=== PATIENT | female | born 1945 | race Caucasian/White ===

== ENCOUNTER 2019-10-12 13:55 | Outpatient (CLI) | payer MEDICARE, SELFPAY ==
[2019-10-12 14:37] LABS: Basophils Absolute Auto 0.1 K/mm3 (0.0-0.1); Basophils Percent Auto 1.2 % (0.2-1.2); Eosinophils Absolute Auto 0.2 K/mm3 (0-0.3); Eosinophils Percent Auto 3.1 % (0-4.4); Hematocrit 38.3 % (37.0-47.0); Hemoglobin 12.2 g/dL (12.0-15.0); Immature Granulocyte Absolute 0.02 K/mm3 (0.00-0.031); Immature Granulocyte Percent A 0.3 % (0-0.5); Immature Reticulocyte Fraction 17.9 % (3.0-15.9); Lymphocytes Absolute Auto 2.14 K/mm3 (0.9-3.2); Lymphocytes Percent Auto 31.6 % (18.3-44.2); Mean Corpuscular HGB Conc 31.9 g/dl (32-36); Mean Platelet Volume 10.9 fl (7.4-10.4); Monocytes Absolute Auto 0.6 K/mm3 (0.1-0.6); Monocytes Percent Auto 9.4 % (2.6-8.5); Neutrophils Absolute Auto 3.7 K/mm3 (1.3-6.7); Neutrophils Percent Auto 54.4 % (45.5-73.1); Platelet Count Result 253 k/mm3 (150-375); Red Blood Count 4.21 M/mm3 (4.2-5.4); Red Cell Distribution Width 16.1 % (11.5-14.5); Reticulocyte Hemoglobin Conten 32.9 pg (28.2-35.7); Reticulocyte Percent 3.87 % (0.7-4.3); Reticulocytes Absolute 0.16 B/L (32.2-175.7); White Blood Count 6.8 K/mm3 (4.5-10.0)
[2019-10-12 15:40] LABS: Iron 59 ug/dL (37-170)
[2019-10-12 15:50] LABS: Percent Iron Saturation 17 % (20-50)
== END 2019-10-12 13:56 | disposition home or self-care (01) ==
PROVIDERS: PCP Internal Medicine
DX: D50.9 Iron deficiency anemia, unspecified (principal)
CPT/HCPCS: 36415; 82728; 83540; 83550; 85025; 85046

== ENCOUNTER → 2019-11-24 15:24 | Outpatient (CLI) | payer MEDICARE, SELFPAY ==
--- NOTE | ~2019-11-24 | US_ITS ---
US renal BI 11/24/2019 15:45 Procedure: Realtime transabdominal ultrasound of the kidneys and bladder. Indication: Chronic kidney disease stage I Comparison: 12/19/2010 Findings: There are multiple small bilateral renal cysts, largest in the right kidney measuring 1.8 c m in largest on the left measuring 1.5 cm. No solid masses, stones or hydronephrosis. The right kidne y measures 12.2 cm and left kidney measures 13.3 cm. Bladder within normal limits. Impression: 1: Bilateral renal cysts. Reviewed, dictated and finalized at location A. Impression: 1: Bilateral renal cysts.
== END ==
PROVIDERS: PCP Internal Medicine
DX: N18.1 Chronic kidney disease, stage 1 (principal); N28.1 Cyst of kidney, acquired
CPT/HCPCS: 76775

== ENCOUNTER 2020-01-28 13:51 | Outpatient (CLI) | payer MEDICARE, SELFPAY ==
[2020-01-28 14:46] LABS: Hematocrit 38.7 % (37.0-47.0); Hemoglobin 12.3 g/dL (12.0-15.0); Mean Corpuscular Volume 91.3 fl (80-100); Red Blood Count 4.24 M/mm3 (4.2-5.4); White Blood Count 6.9 K/mm3 (4.5-10.0)
[2020-01-28 14:47] LABS: Basophils Absolute Auto 0.1 K/mm3 (0.0-0.1); Eosinophils Absolute Auto 0.3 K/mm3 (0-0.3); Eosinophils Percent Auto 3.6 % (0-4.4); Immature Granulocyte Absolute 0.03 K/mm3 (0.00-0.031); Immature Granulocyte Percent A 0.4 % (0-0.5); Immature Reticulocyte Fraction 23.1 % (3.0-15.9); Lymphocytes Absolute Auto 1.94 K/mm3 (0.9-3.2); Lymphocytes Percent Auto 28.1 % (18.3-44.2); Mean Corpuscular HGB Conc 31.8 g/dl (32-36); Mean Platelet Volume 10.2 fl (7.4-10.4); Monocytes Absolute Auto 0.6 K/mm3 (0.1-0.6); Neutrophils Percent Auto 57.9 % (45.5-73.1); Platelet Count Result 318 k/mm3 (150-375); Red Cell Distribution Width 15.8 % (11.5-14.5); Reticulocyte Hemoglobin Conten 31.6 pg (28.2-35.7); Reticulocyte Percent 2.45 % (0.7-4.3)
[2020-01-28 14:54] LABS: Creatinine Urine 25.6 mg/dL; Total Protein Urine Random 95 mg/dL
[2020-01-28 15:25] LABS: Alanine Aminotransferase 21 U/L (4-35); Albumin Level 4.1 g/dL (3.5-5.1); Alkaline Phosphatase 79 U/L (38-126); Anion Gap 7 mmol/L (8-16); Aspartate Amino Transferase 29 U/L (14-36); Bilirubin,Total 0.4 mg/dL (0.2-1.3); Blood Urea Nitrogen 16 mg/dL (7-17); Calcium 9.3 mg/dL (8.4-10.2); Carbon Dioxide 27 mmol/L (22-30); Chloride 105 mmol/L (98-107); Cholesterol 143 mg/dL (0-200); Estimated Glomerular Filt Rate > 60; Glucose 126 mg/dL (65-105); HDL Direct 33 mg/dL; Phosphorus 4.1 mg/dL (2.5-4.5); Potassium 4.3 mmol/L (3.4-5.0); Sodium 139 mmol/L (137-145); Triglycerides 335 mg/dL (<150)
[2020-01-28 15:32] LABS: Hemoglobin A1C 7.7 % (<5.7)
[2020-01-28 15:35] LABS: LDL Cholesterol Direct 59 mg/dL
[2020-01-28 16:07] LABS: Vitamin D 25 Hydroxy 19.7 ng/mL
[2020-01-28 16:17] LABS: Free T4 Free Thyroxine 0.83 ng/mL (0.78-2.19); Iron 47 ug/dL (37-170); Parathyroid Intact 34.2 pg/mL (7.5-53.5); Percent Iron Saturation 11 % (20-50)
[2020-01-28 16:52] LABS: Ferritin 8.57 ng/mL (11.1-264)
[2020-01-28 17:17] LABS: MALB Creatinine Ratio 2223.8 mg/g (0-30); Microalbumin Urine Random 569.3 mg/L (0-16.7)
[2020-01-31 05:47] LABS: Homocysteine 16.9 umol/L (<10.4)
[2020-01-31 21:56] LABS: Intrinsic Factor Blocking Ab Negative (Negative)
[2020-02-01 17:00] LABS: Methylmalonic Acid 110 nmol/L (87-318)
== END 2020-01-28 13:52 | disposition home or self-care (01) ==
PROVIDERS: PCP Internal Medicine
DX: D50.9 Iron deficiency anemia, unspecified (principal); E61.1 Iron deficiency; E53.8 Deficiency of other specified B group vitamins; E78.2 Mixed hyperlipidemia; Z79.4 Long term (current) use of insulin; E11.59 Type 2 diabetes mellitus with other circulatory complications; Z13.6 Encounter for screening for cardiovascular disorders; N18.9 Chronic kidney disease, unspecified
CPT/HCPCS: 36415; 80053; 80061; 82043; 82306; 82570; 82607; 82728; 83036; 83090; 83516; 83540; 83550; 83921; 83970; 84100; 84156; 84439; 84443; 85025; 85046; 86340

== ENCOUNTER 2020-03-07 13:16 | Emergency (ER) | payer MEDICARE, SELFPAY ==
--- NOTE | ~2020-03-07 | XR_ITS ---
XR knee RT 3V DATE: 03/07/2020 14:32 INDICATION: Fall. Right knee injury, pain TECHNIQUE: 3 views COMPARISON: None FINDINGS: There is a large suprapatellar knee joint effusion. Tricompartment osteoarthritis. No fracture, dislocation, periosteal reaction or bone destruction is detected. Femoral, popliteal and trifurcation artery calcifications. IMPRESSION: Large suprapatellar knee joint effusion Tricompartment osteoarthritis Reviewed, dictated and finalized at location A. [employer]URING TECH
[2020-03-07 13:19] VITALS: BP 149/63; PULSE 65; RESP 16; TEMP 35.8; O2SAT 98
[2020-03-07 15:39] VITALS: BP 138/74; PULSE 72; RESP 16; O2SAT 100
--- NOTE | 2020-03-07 16:13 | ED.LOWEXIN ---
HPI - Extremity Injury (Lower) General Chief Complaint: Extremity Injury, Lower Stated Complaint: right knee pain Time Seen by Provider: 03/07/20 13:28 Source: patient Mode of arrival: wheelchair Limitations: no limitations History of Present Illness HPI Narrative: 74-year-old female History of diabetes hypertension She stumbled and fell 2 days ago when she tried to pivot on her right leg Knee collapsed and has been painful ever since and she has had a great deal of difficulty bearing any weight It is mildly swollen There were no other injuries She said she recently had steroid shots in both knees Related Data Home Medications Medication Instructions Recorded Confirmed albuterol sulfate 90 mcg/actuation 2 puff INHALATION Q4-6H PRN gm 03/04/19 02/23/20 aerosol inhaler aspirin 81 mg tablet,delayed 81 mg PO DAILY 03/04/19 02/23/20 release ezetimibe 10 mg tablet 10 mg PO DAILY 03/04/19 02/23/20 fenofibrate nanocrystallized 145 145 mg PO DAILY 03/04/19 02/23/20 mg tablet fluticasone furoate 100 1 inhalation INHALATION DAILY 03/04/19 02/23/20 mcg/actuation blister powder for inhalation insulin glargine 100 unit/mL (3 10 unit SUB-Q DAILY 03/04/19 02/23/20 mL) subcutaneous pen insulin lispro 100 unit/mL 1 unit SUB-Q ONCE 03/04/19 02/23/20 subcutaneous pen lancets #50 each 03/04/19 02/23/20 lisinopril 40 mg tablet 40 mg PO DAILY 03/04/19 02/23/20 mecobalamin (vitamin B12) 1,000 1,000 mcg SUBLINGUAL DAILY 03/04/19 02/23/20 mcg disintegrating tablet,sublingual metformin 1,000 mg tablet 1,000 mg PO BID 03/04/19 02/23/20 rosuvastatin 40 mg tablet 40 mg PO DAILY 03/04/19 02/23/20 tramadol 50 mg tablet 50 mg PO BID PRN tablet 03/04/19 02/23/20 furosemide 20 mg tablet 20 mg PO QAM 03/08/19 02/23/20 gabapentin 300 mg capsule 300 mg PO DAILY 03/08/19 02/23/20 tiotropium 2.5 mcg-olodaterol 2.5 2 puff INHALATION DAILY 06/11/19 02/23/20 mcg/actuation mist for inhalation empagliflozin 10 mg tablet 10 mg PO DAILY 02/02/20 02/23/20 metoprolol succinate 25 mg 25 mg PO DAILY 02/02/20 02/23/20 tablet,extended release 24 hr nitroglycerin 0.4 mg sublingual 0.4 mg SUBLINGUAL Q5M PRN 02/02/20 02/23/20 tablet cholecalciferol (vitamin D3) 100 2,000 unit PO DAILY cap 02/23/20 02/23/20 mcg (4,000 unit) capsule dulaglutide 1.5 mg/0.5 mL 3 mg SUB-Q WEEKLY ml 02/23/20 02/23/20 subcutaneous pen injector ergocalciferol (vitamin D2) 1,250 1,250 mcg PO WEEKLY 02/23/20 02/23/20 mcg (50,000 unit) capsule icosapent ethyl 1 gram capsule 2 g PO BID 02/23/20 02/23/20 pregabalin 25 mg capsule 50 mg PO DIRECTED cap 02/23/20 02/23/20 Allergies Allergy/AdvReac Type Severity Reaction Status Date / Time Sulfa (Sulfonamide Allergy Severe Swelling Verified 02/23/20 14:05 Antibiotics) of Lip/Tongue/Throat Penicillins Allergy Unknown Swelling Verified 02/23/20 14:05 of Lip/Tongue/Throat Review of Systems Review of Systems: All systems reviewed & are unremarkable except as noted in HPI and below Constitutional: Constitutional: Denies headache(s) and Denies weakness Eyes: Eyes: Reports no additional eye complaints ENT: Denies headache(s) and Denies nasal congestion Cardiovascular: Cardiovascular: Denies chest pain, Denies leg edema, Denies palpitations and Denies dyspnea Respiratory: Respiratory: Denies cough, Denies dyspnea and Denies wheezing Genitourinary: Genitourinary: Denies urinary frequency Musculoskeletal: Musculoskeletal: Denies back pain, Denies deformity, Reports arthralgias, Reports joint swelling, Denies muscle weakness and Denies numbness Integumentary/Breasts: Skin/Breast: Denies rash and Denies wounds Neurologic: Denies focal weakness and Denies numbness Psychiatric: Psychiatric: Reports no additional psychiatric complaints Endocrine: Endocrine: Denies palpitations PMFSH Past Medical History Medical History (Reviewed 02/23/20 @ 14:07 by Jessica Fletcher, [facility]
== END 2020-03-07 17:18 | disposition home or self-care (01) ==
PROVIDERS: Emergency Provider Emergency Medicine; PCP Internal Medicine
DX: S89.91XA Unspecified injury of right lower leg, initial encounter (principal); I10 Essential (primary) hypertension; Z79.82 Long term (current) use of aspirin; Z79.4 Long term (current) use of insulin; J45.909 Unspecified asthma, uncomplicated; N28.9 Disorder of kidney and ureter, unspecified; I51.9 Heart disease, unspecified; M17.0 Bilateral primary osteoarthritis of knee; Z87.891 Personal history of nicotine dependence; E11.9 Type 2 diabetes mellitus without complications; W01.0XXA Fall on same level from slipping, tripping and stumbling without subsequent striking against object, initial encounter
CPT/HCPCS: 73562; 99283

== ENCOUNTER 2020-03-14 11:24 | Outpatient (CLI) | payer MEDICARE, SELFPAY ==
[2020-03-14 11:54] LABS: Basophils Absolute Auto 0.1 K/mm3 (0.0-0.1); Basophils Percent Auto 0.9 % (0.2-1.2); Eosinophils Absolute Auto 0.2 K/mm3 (0-0.3); Eosinophils Percent Auto 2.4 % (0-4.4); Hematocrit 38.3 % (37.0-47.0); Hemoglobin 12.3 g/dL (12.0-15.0); Immature Granulocyte Absolute 0.05 K/mm3 (0.00-0.031); Immature Granulocyte Percent A 0.6 % (0-0.5); Lymphocytes Absolute Auto 1.67 K/mm3 (0.9-3.2); Lymphocytes Percent Auto 21.3 % (18.3-44.2); Mean Corpuscular HGB Conc 32.1 g/dl (32-36); Mean Corpuscular Hemoglobin 30.1 pg (26-34); Mean Corpuscular Volume 93.9 fl (80-100); Mean Platelet Volume 9.5 fl (7.4-10.4); Monocytes Absolute Auto 0.6 K/mm3 (0.1-0.6); Monocytes Percent Auto 7.9 % (2.6-8.5); Neutrophils Absolute Auto 5.2 K/mm3 (1.3-6.7); Neutrophils Percent Auto 66.9 % (45.5-73.1); Platelet Count Result 361 k/mm3 (150-375); Red Blood Count 4.08 M/mm3 (4.2-5.4); Red Cell Distribution Width 19.1 % (11.5-14.5); White Blood Count 7.8 K/mm3 (4.5-10.0)
[2020-03-14 12:21] LABS: Erythrocyte Sedimentation Rate 33 mm/hr (0-20)
[2020-03-14 12:45] LABS: CRP < 0.5 mg/dL (<1.0); Uric Acid 4.8 mg/dL (2.5-7.5)
[2020-03-14 16:00] LABS: Rheumatoid Factor < 8.6 IU/ML (<12)
== END 2020-03-14 11:25 | disposition home or self-care (01) ==
PROVIDERS: PCP Internal Medicine; Visit Provider Orthopaedic Surgery
DX: M17.0 Bilateral primary osteoarthritis of knee (principal); M06.9 Rheumatoid arthritis, unspecified; J45.909 Unspecified asthma, uncomplicated
CPT/HCPCS: 36415; 84550; 85025; 85652; 86038; 86140; 86430

== ENCOUNTER 2020-04-17 11:16 | Outpatient (CLI) | payer MEDICARE, SELFPAY ==
--- NOTE | ~2020-04-17 | MR_ITS ---
EXAMINATION: MR knee RT wo con DATE: 04/17/2020 12:18 INDICATION: One month of right knee pain, weakness and swelling TECHNIQUE: Magnetic resonance imaging (MRI) of the right knee was performed without intravenous contr ast. Sequences included coronal PD-weighted FSE, coronal PD-weighted FS FSE, sagittal T2-weighted FS E, sagittal PD-weighted FS FSE and axial PD weighted fat saturated FSE. COMPARISON: None. FINDINGS: Evaluation mildly limited by some motion artifact on the sagittal sequences more prominent on the fat -saturated sequence. Medial compartment: Full or near full-thickness radial tear at the posterior root of the medial meniscus. There is increa sed intrasubstance signal in the posterior horn and posterior body which does not unambiguously conta ct the articular surface to suggest additional tear in this be consistent with mucoid degeneration. S mall region of partial-thickness chondral ulceration involving less than 50% the cartilage thickness and without degenerative subchondral changes at the anterolateral most weightbearing medial femoral c ondyle. Deep chondral ulceration which appears to approach full-thickness at the posterior weightbear ing medial femoral condyle which measures 1.3 cm AP and 9 mm medial collateral with negligible underl josseline subarticular edema. Lateral compartment: Additional increased intrasubstance signal in the body of the lateral meniscus which does not and bas e of contact the articular surface to suggest tear consistent with additional mucoid degeneration. Pa rtial-thickness chondral fissuring at the posterior aspect of the lateral tibial plateau without dege nerative subchondral changes. Small flat subchondral osteophytes underlying the anteromedial aspect o f the lateral tibial plateau. Patellofemoral compartment: Extensive full and near full-thickness chondral ulceration involving the majority of the lateral almanza llar facet and apical ridge as well as a significant portion of the juxtaposed lateral trochlea with suggestion of early remodeling of the articular cortices and mild scattered subarticular edema. Addit ional less severe partial thickness chondral ulceration and fissuring at the medial facet, medial tro chlea and trochlear groove. Ligaments and tendons: Anterior cruciate ligament is normal. The posterior cruciate ligament appears mildly thickened with i ncreased intrasubstance signal consistent with at least partial tear although no discontinuity is marivel reciated. The medial collateral ligament and fibular collateral ligament complex are normal. The exte nsor mechanism is normal with bands of magic angle artifact along the patellar tendon. The visualized medial and lateral hamstring tendons as well as the iliotibial band are normal. Fluid: Large right knee joint effusion. There are several loose osteochondral bodies in the popliteal recess . There is a suprapatellar plical band as well as a medial plical band bladder which crosses beyond t he medial rim of the medial trochlea. There is prepatellar edema without a discrete bursal fluid melody ection. Osseous/other: No fracture or pathologic marrow replacing process. IMPRESSION: 1. Both medial and lateral meniscal mucoid degeneration with radial tear at the posterior root of the medial meniscus. 2. At least partial tear of the posterior cruciate ligament. 3. Moderate to severe patellofemoral and mild medial and lateral compartment osteoarthritis with allison ons of high-grade chondral malacia in all 3 compartments, greatest in the patellofemoral. 4. Large likely reactive right knee joint effusion. Reviewed, dictated and finalized at location A. 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
== END 2020-04-17 11:17 | disposition home or self-care (01) ==
PROVIDERS: PCP Internal Medicine; Visit Provider Orthopaedic Surgery
DX: S83.241A Other tear of medial meniscus, current injury, right knee, initial encounter (principal); X58.XXXA Exposure to other specified factors, initial encounter; M17.11 Unilateral primary osteoarthritis, right knee; M25.461 Effusion, right knee
CPT/HCPCS: 73721

== ENCOUNTER 2020-05-26 13:51 | Outpatient (CLI) | payer MEDICARE, SELFPAY ==
[2020-05-26 14:36] LABS: Basophils Absolute Auto 0.1 K/mm3 (0.0-0.1); Basophils Percent Auto 0.7 % (0.2-1.2); Eosinophils Absolute Auto 0.2 K/mm3 (0-0.3); Eosinophils Percent Auto 3.2 % (0-4.4); Hematocrit 32.9 % (37.0-47.0); Immature Granulocyte Absolute 0.03 K/mm3 (0.00-0.031); Immature Granulocyte Percent A 0.4 % (0-0.5); Immature Platelet Fraction Pct 2.8 % (0.9-11.2); Immature Reticulocyte Fraction 30.5 % (3.0-15.9); Lymphocytes Absolute Auto 2.02 K/mm3 (0.9-3.2); Lymphocytes Percent Auto 28.3 % (18.3-44.2); Mean Corpuscular HGB Conc 30.4 g/dl (32-36); Mean Corpuscular Hemoglobin 25.5 pg (26-34); Mean Corpuscular Volume 83.9 fl (80-100); Mean Platelet Volume 9.8 fl (7.4-10.4); Monocytes Absolute Auto 0.7 K/mm3 (0.1-0.6); Monocytes Percent Auto 9.9 % (2.6-8.5); Neutrophils Absolute Auto 4.1 K/mm3 (1.3-6.7); Neutrophils Percent Auto 57.5 % (45.5-73.1); Platelet Count Result 312 k/mm3 (150-375); Red Blood Count 3.92 M/mm3 (4.2-5.4); Red Cell Distribution Width 16.5 % (11.5-14.5); Reticulocyte Hemoglobin Conten 24.1 pg (28.2-35.7); Reticulocyte Percent 2.25 % (0.7-4.3); Reticulocytes Absolute 0.09 B/L (32.2-175.7); White Blood Count 7.2 K/mm3 (4.5-10.0)
[2020-05-26 15:09] LABS: Hypochromasia 1+ (NORMAL); Platelet Estimate Adequate (Adequate)
[2020-05-26 15:21] LABS: Iron 24 ug/dL (37-170)
[2020-05-26 15:30] LABS: Percent Iron Saturation 5 % (20-50)
[2020-05-26 15:57] LABS: Ferritin 5.97 ng/mL (11.1-264)
== END 2020-05-26 13:52 | disposition home or self-care (01) ==
PROVIDERS: PCP Internal Medicine
DX: D50.0 Iron deficiency anemia secondary to blood loss (chronic) (principal)
CPT/HCPCS: 36415; 82728; 83540; 83550; 85025; 85046; 85055

== ENCOUNTER 2020-10-27 13:22 | Outpatient (CLI) | payer MEDICARE, SELFPAY ==
--- NOTE | ~2020-10-27 | CT_ITS ---
EXAMINATION: CT lung screening DATE: 10/27/2020 14:12 INDICATION: Personal history of nicotine dependence, current smoker with 50 pack year history TECHNIQUE: Computed tomography (CT) of the chest was performed without intravenous contrast. The dose -length product (DLP) was 201.86 mGy-cm. Automated exposure control and iterative reconstruction tech [employer] were employed. COMPARISON: 12/19/2016 FINDINGS: There are multiple nodules throughout all lung zones. The largest is a 4 mm nodule of the l eft upper lobe. There is mild emphysema. There is mild atelectasis of the lung bases. There is no ple ural effusion or pneumothorax. No pathologically enlarged thoracic lymph nodes are identified. The he art size is normal. Calcified coronary artery atherosclerosis is noted. There is severe spondylosis o f the lower cervical spine and moderate thoracic spondylosis. IMPRESSION: 1. Lung-RADS category 2: Benign appearance or behavior. Continue annual screening with noncontrast lo w-dose chest CT in 12 months. Reviewed, dictated and finalized at location A. IMPRESSION: 1. Lung-RADS category 2: Benign appearance or behavior. Continue annual screeni ng with noncontrast low-dose chest CT in 12 months.
--- NOTE | ~2020-10-27 | MR_ITS ---
EXAMINATION: MR lumbar spine wo [facility] EXAM DATE: 10/27/2020 14:38 INDICATION: Spinal stenosis lumbar region. TECHNIQUE: Multi-sequential, multiplanar MR images of the lumbar spine were obtained without contrast . Sagittal T1, T2, T2 fat saturation images. Axial T2 weighted images. Comparison is made to prior examination from 10/20/15. FINDINGS: There is 2 mm retrolisthesis L1 on L2, 3 mm retrolisthesis L2 on L3 and L3 on L4. Moderate to severe disc disease L2-S1. The conus medullaris terminates at the L1/2 level and has normal signal intensity and morphology. Endplate degenerative signal change L2-3 and L3-4. Paraspinal soft tissue is unremarkable. Mild thoracolumbar scoliosis. Level by level evaluation: T12-L1: There is a mild diffuse disc bulge. Facet arthropathy: Mild. Neural foraminal stenosis: No stenosis. Central canal stenosis: No stenosis. L1-L2: There is a mild to moderate diffuse disc bulge. Facet arthropathy: Mild to moderate. Neural foraminal stenosis: Mild to moderate right, no left. Central canal stenosis: Mild. L2-L3: There is a moderate diffuse disc bulge. Facet arthropathy: Moderate. Neural foraminal stenosis: Moderate left, mild to moderate right. Central canal stenosis: Moderate, nerve root crowding. L3-L4: There is a moderate diffuse disc bulge, small left central extrusion with inferior migration. Facet arthropathy: Moderate. Neural foraminal stenosis: Moderate to severe left, mild to moderate right. Central canal stenosis: Moderate. L4-L5: There is a mild to moderate diffuse disc bulge. Facet arthropathy: Mild to moderate. Neural foraminal stenosis: Moderate left, mild to moderate right. Central canal stenosis: Mild to moderate. L5-S1: There is a moderate to large diffuse disc bulge. Facet arthropathy: Moderate to severe right, moderate left. Neural foraminal stenosis: Moderate to severe right, moderate left. Central canal stenosis: Mild to moderate. There is been noticeable interval progression in spondylosis compared to 2016, including the central canal stenosis at L2-3 and L3-4. IMPRESSION: Moderate to severe lumbar spondylosis with progression compared to 2016. Reviewed, dictated and finalized at location B.
== END 2020-10-27 13:23 | disposition home or self-care (01) ==
PROVIDERS: PCP Internal Medicine
DX: M48.062 Spinal stenosis, lumbar region with neurogenic claudication (principal); M47.817 Spondylosis without myelopathy or radiculopathy, lumbosacral region; Z87.891 Personal history of nicotine dependence; M47.896 Other spondylosis, lumbar region
CPT/HCPCS: 71271; 72148

== ENCOUNTER 2020-11-23 11:25 | Outpatient (CLI) | payer MEDICARE, SELFPAY ==
--- NOTE | 2020-11-23 | ECG_ITS ---
Measurements Intervals [place] Rate: 64 P: 51 NE: 198 QRS: 10 QRSD: 93 T: 54 QT: 408 QTc: 421 Interpretive Statements SINUS RHYTHM NONSPECIFIC T-WAVE ABNORMALITY BORDERLINE R WAVE PROGRESSION, ANTERIOR LEADS CONSIDER INFERIOR INFARCT, AGE INDETERMINATE ABNORMAL ECG Electronically Signed On 11-23-2020 12:46:29 CDT by Isaiah Patel D.O.
--- NOTE | ~2020-11-23 | XR_ITS ---
XR skull min 4V DATE: 11/23/2020 12:02 INDICATION: Head injury TECHNIQUE: Ian Escobedo and left and right lateral views COMPARISON: None FINDINGS: There is severe degenerative disc disease at C5-6 and C6-7. Normal sella turcica. No skull fracture or bone destruction. No abnormal intracranial calcification i s detected. There is normal aeration of the paranasal sinuses and mastoid air cells. IMPRESSION: Reviewed, dictated and finalized at location A. IMPRESSION:
[2020-11-23 14:50] LABS: Basophils Absolute Auto 0.1 K/mm3 (0.0-0.1); Basophils Percent Auto 1.1 % (0.2-1.2); Eosinophils Absolute Auto 0.2 K/mm3 (0-0.3); Eosinophils Percent Auto 2.6 % (0-4.4); Hematocrit 36.4 % (37.0-47.0); Hemoglobin 11.1 g/dL (12.0-15.0); Immature Granulocyte Absolute 0.02 K/mm3 (0.00-0.031); Immature Granulocyte Percent A 0.3 % (0-0.5); Lymphocytes Absolute Auto 1.75 K/mm3 (0.9-3.2); Mean Corpuscular HGB Conc 30.5 g/dl (32-36); Monocytes Absolute Auto 0.7 K/mm3 (0.1-0.6); Monocytes Percent Auto 8.6 % (2.6-8.5); Neutrophils Absolute Auto 4.9 K/mm3 (1.3-6.7); Neutrophils Percent Auto 64.4 % (45.5-73.1); Platelet Count Result 300 k/mm3 (150-375); Red Blood Count 3.83 M/mm3 (4.2-5.4); Red Cell Distribution Width 16.4 % (11.5-14.5); White Blood Count 7.6 K/mm3 (4.5-10.0)
[2020-11-23 14:56] LABS: Alanine Aminotransferase 24 U/L (4-35); Alkaline Phosphatase 70 U/L (38-126); Anion Gap 6 mmol/L (8-16); Aspartate Amino Transferase 30 U/L (14-36); Bilirubin,Total 0.4 mg/dL (0.2-1.3); Blood Urea Nitrogen 13 mg/dL (7-17); Calcium 9.2 mg/dL (8.4-10.2); Carbon Dioxide 24 mmol/L (22-30); Chloride 110 mmol/L (98-107); Cholesterol 132 mg/dL (0-200); Estimated Glomerular Filt Rate > 60; Glucose 136 mg/dL (65-110); HDL Direct 44 mg/dL; Phosphorus 4.2 mg/dL (2.5-4.5); Potassium 4.2 mmol/L (3.4-5.0); Sodium 140 mmol/L (137-145); Triglycerides 206 mg/dL (<150)
[2020-11-23 14:57] LABS: Add Urine Microscopic? YES; Appearance Urine Clear (Clear); Bilirubin Urine Negative (Negative); Blood Urine Negative (Negative); Color Urine Yellow (Yellow); Glucose Urine UA Negative (Negative); Ketones Urine Negative (Negative); Leukocyte Esterase Ur Negative LEU/UL (Negative); Mucus Urine Rare /lpf; Nitrate Urine Negative (Negative); Protein Urine 3+ mg/dL (Negative); Specific Grav Ur 1.019 (1.001-1.035); Squamous Epithelial Cell Urine Rare /hpf (Few); Urobilinogen Urine Negative mg/dL (<2.0); WBC Urine 0-3 /hpf
[2020-11-23 14:59] LABS: Rheumatoid Factor < 8.6 IU/ML (<12)
[2020-11-23 15:07] LABS: LDL Cholesterol Direct 56 mg/dL
[2020-11-23 15:51] LABS: Creatinine Urine 93.9 mg/dL
[2020-11-23 15:52] LABS: Parathyroid Intact 24.7 pg/mL (7.5-53.5)
[2020-11-23 16:00] LABS: Vitamin D 25 Hydroxy 31.5 ng/mL
[2020-11-23 16:15] LABS: Hepatitis B Surface Antigen Negative (Negative)
[2020-11-23 16:33] LABS: Hepatitis C Virus Antibody Negative (Negative)
[2020-11-23 16:56] LABS: Total Protein Urine Random 351 mg/dL; Ur Ttl Prot Creatinine Ratio 3.74 mg/mg (0-0.20)
[2020-11-23 17:02] LABS: MALB Creatinine Ratio 1214.1 mg/g (0-30); Microalbumin Urine Random > 1140.0 mg/L (0-16.7)
[2020-11-23 20:58] LABS: Hemoglobin A1C 7.1 % (<5.7)
[2020-11-26 04:38] LABS: Albumin 3.6 g/dL (3.8-4.8); Alpha 1 Globulin 0.3 g/dL (0.2-0.3); Alpha 2 Globulin 0.9 g/dL (0.5-0.9); Beta 1 Globulin 0.5 g/dL (0.4-0.6); Gamma Globulin 0.8 g/dL (0.8-1.7); Protein, Total 6.4 g/dL (6.1-8.1)
[2020-11-26 22:52] LABS: Anti Nuclear Antibody Titer 1:40 (Negative)
[2020-11-28 05:48] LABS: Creatinine, Random Urine 93 mg/dL (20-275); Total Protein/Creatinine Ratio 3204 mg/g creat (21-161)
== END 2020-11-23 11:26 | disposition home or self-care (01) ==
PROVIDERS: PCP Internal Medicine; Visit Provider Internal Medicine
DX: M48.062 Spinal stenosis, lumbar region with neurogenic claudication (principal); E55.9 Vitamin D deficiency, unspecified; E11.69 Type 2 diabetes mellitus with other specified complication; E78.2 Mixed hyperlipidemia; R80.9 Proteinuria, unspecified; Z11.59 Encounter for screening for other viral diseases; N18.31 Chronic kidney disease, stage 3a
CPT/HCPCS: 36415; 70260; 80053; 80061; 80069; 81001; 82043; 82306; 82570; 82607; 83036; 83970; 84155; 84156; 84165; 84166; 84443; 85025; 86038; 86039; 86225; 86335; 86430; 86803; 87340; 93005

== ENCOUNTER 2021-06-22 07:53 | Outpatient (CLI) | payer MEDICARE, SELFPAY ==
--- NOTE | ~2021-06-22 | MR_ITS ---
EXAMINATION: MR knee LT wo con DATE: 06/22/2021 09:14 INDICATION: Osteoarthritis at the left knee with one month of medial left knee pain and swelling TECHNIQUE: Magnetic resonance imaging (MRI) of the left knee was performed without intravenous contra st. Sequences included coronal PD-weighted FSE, coronal PD-weighted FS FSE, sagittal T2-weighted FSE , sagittal PD-weighted FS FSE and axial PD weighted fat saturated FSE. COMPARISON: None. FINDINGS: Medial compartment: Complex tear at the posterior horn of the medial meniscus. There is medial extrusion of the meniscal body. Partial-thickness cartilage loss with chondral surface irregularity along the medial tibial antoinette teau. Additional partial thickness cartilage loss also with cortical irregularity along the anterior to posterior weightbearing medial femoral condyle. This raises full/near full-thickness with mild cor tical irregularity at the central weightbearing medial femoral condyle. Cartilage thickness at the po sterior most weightbearing lateral femoral condyle appears relatively preserved however there is no u nderlying a delaminating chondral tear near the bone chondral interface which extends 8 mm posteriorl y from the more anterior deeper ulceration margin. Lateral compartment: Lateral meniscus is normal. Small region of shallow chondral ulcerations at the posterior weightbeari ng lateral femoral condyle. Patellofemoral compartment: Extensive full/near full-thickness cartilage loss involving the medial patellar facet, the apical rid ge and medial side of the lateral facet with underlying cortical irregularity. There are also small f oci of edema-like marrow signal change along the superomedial aspect of the lateral patellar facet. A dditional deep chondral ulceration with some remodeling of the articular cortex along the medial troc hlea and trochlear groove. Small amount of shallow chondral ulceration along the cephalad aspect of t he lateral trochlea. Ligaments and tendons: Anterior and posterior cruciate ligaments are normal. The medial collateral ligament and fibular melody ateral ligament complex are normal. Patellar tendon is normal. Mild distal quadriceps tendinopathy. T he visualized medial and lateral hamstring tendons as well as the iliotibial band are normal. Fluid: Moderate sized knee joint effusion with moderate scattered synovitis and prominent at the suprapatell ar pouch and along the posterior margin of Hoffa's fat pad. Multiple multiloculated ganglion cysts ar ising from the posterior recess of the knee. No loose osteochondral bodies identified. There is subcu taneous edema about the knee. Osseous/other: There is prominent marrow edema along the medial femoral condyle surrounding a small region of shallo w concavity to the articular cortex along the medial rim of the anterior weightbearing medial femoral condyle which could represent either an impaction fracture or stress/insufficiency fracture related to altered stress distribution resulting from the meniscal tear. Multiloculated intraosseous ganglion cyst underlying the intercondylar eminence which appears to arise from a tiny neck at the root of th e posterior horn of the medial meniscus. There is fatty atrophy of indeterminate etiology of the visu alized portion of the semimembranosus muscle belly. Nonspecific mild feathery edema in the visualized vastus medialis and lateralis which could be related to muscle strain. Partially visualized intramus cular lipoma within the proximal medial head of the gastrocnemius IMPRESSION: 1. Complex medial meniscal tear. 2. Subarticular fracture along the medial rim of the anterior weightbearing medial femoral condyle wi th shallow concavity of the articular cortex which could be due to either discrete impaction fracture or more likely a stress/insufficiency fracture related to altered stresses patient resulting from th e m
== END 2021-06-22 07:54 | disposition home or self-care (01) ==
PROVIDERS: PCP Internal Medicine
DX: M17.0 Bilateral primary osteoarthritis of knee (principal); S83.232A Complex tear of medial meniscus, current injury, left knee, initial encounter; X58.XXXA Exposure to other specified factors, initial encounter
CPT/HCPCS: 73721

== ENCOUNTER 2021-07-09 14:46 | Outpatient (CLI) | payer MEDICARE, SELFPAY ==
[2021-07-09 15:29] LABS: Basophils Absolute Auto 0.1 K/mm3 (0.0-0.1); Basophils Percent Auto 1.2 % (0.2-1.2); Eosinophils Absolute Auto 0.2 K/mm3 (0-0.3); Eosinophils Percent Auto 3.3 % (0-4.4); Hemoglobin 11.7 g/dL (12.0-15.0); Immature Granulocyte Absolute 0.02 K/mm3 (0.00-0.031); Immature Granulocyte Percent A 0.3 % (0-0.5); Lymphocytes Absolute Auto 2.05 K/mm3 (0.9-3.2); Lymphocytes Percent Auto 30.8 % (18.3-44.2); Mean Corpuscular HGB Conc 32.5 g/dl (32-36); Mean Corpuscular Hemoglobin 30.6 pg (26-34); Mean Corpuscular Volume 94.2 fl (80-100); Mean Platelet Volume 11.4 fl (7.4-10.4); Monocytes Absolute Auto 0.6 K/mm3 (0.1-0.6); Monocytes Percent Auto 9.2 % (2.6-8.5); Neutrophils Absolute Auto 3.7 K/mm3 (1.3-6.7); Neutrophils Percent Auto 55.2 % (45.5-73.1); Platelet Count Result 245 k/mm3 (150-375); Red Blood Count 3.82 M/mm3 (4.2-5.4); Red Cell Distribution Width 19.1 % (11.5-14.5); White Blood Count 6.7 K/mm3 (4.5-10.0)
[2021-07-09 16:48] LABS: Iron 52 ug/dL (37-170)
[2021-07-09 17:03] LABS: Percent Iron Saturation 13 % (20-50)
== END 2021-07-09 14:47 | disposition home or self-care (01) ==
PROVIDERS: PCP Internal Medicine
DX: D50.0 Iron deficiency anemia secondary to blood loss (chronic) (principal)
CPT/HCPCS: 36415; 82728; 83540; 83550; 85025

== ENCOUNTER 2021-09-26 11:35 | Day surgery (SDC) | payer MEDICARE, SELFPAY ==
[2021-09-19 13:18] VITALS: BMI 36.7
--- NOTE | 2021-09-26 09:01 | WPDHPUPDATE1 ---
History and Physical Update Update Date/Time: 09/26/21 09:01 History and Physical has been reviewed, including an updated exam of the patient. There are NO changes in the patient's condition. Risks, benefits, and alternatives have been discussed and questions answered. Patient agrees to proceed with procedure.
[2021-09-26 11:52] VITALS: BMI 37.8
[2021-09-26 11:53] VITALS: BP 154/70; PULSE 65; RESP 14; TEMP 36.6; O2SAT 98
[2021-09-26] MEDS: TETRACAINE HCL 0.5% OPHTH SOLN 4 ML BTL 1 DROP AFFCTD EYE ×3 (11:58→12:08)
--- NOTE | 2021-09-26 12:22 | W.PM.PROC2 ---
Procedure Note - Detailed Date of Procedure 09/26/21 Pre-op Diagnosis Posterior Capsule Opacification Post-op Diagnosis Same Procedure Performed YAG Laser Capsulotomy LEFT eye Surgeon Alen Dale MD Anesthesia Other (Topical) Description of Procedure After appropriate discussion, consent and topical anesthesia, the patient was placed in front of the laser. All settings were checked. The laser procedure was then performed. The patient tolerated the procedure well. Power Level: [3.0 mJ] Number of Pulses: [30] Complications None Condition Stable Disposition Same day
== END 2021-09-26 12:15 | disposition home or self-care (01) ==
PROVIDERS: PCP Internal Medicine
PROC: (CPT 66821; principal; 2021-09-26 12:30)
DX: H26.492 Other secondary cataract, left eye (principal)
CPT/HCPCS: 66821

== ENCOUNTER 2021-11-10 12:55 | Outpatient (CLI) | payer MEDICARE, SELFPAY ==
--- NOTE | ~2021-11-10 | CT_ITS ---
EXAMINATION: CT lung screening DATE: 11/10/2021 13:20 INDICATION: Lung cancer screening TECHNIQUE: Computed tomography (CT) of the chest was performed without intravenous contrast. The dose -length product was 319.85 mGy-cm. Automated exposure control and iterative reconstruction technique were employed. COMPARISON: CT dated 10/27/2020 FINDINGS: Heart size normal. No significant pleural or pericardial effusion. There is atherosclerosis of the aorta and coronary arteries. No thoracic lymphadenopathy. Mild emphysema. There are multiple bilateral pulmonary nodules all measuring 4 mm or less. No endobronchial lesions. There is mild-moder ate thoracic spondylosis. IMPRESSION: 1. Lung-RADS category 2: Benign appearance or behavior. Continue annual screening with noncontrast lo w-dose chest CT in 12 months. Reviewed, dictated and finalized at location A. IMPRESSION: 1. Lung-RADS category 2: Benign appearance or behavior. Continue annual screeni ng with noncontrast low-dose chest CT in 12 months.
== END 2021-11-10 12:56 | disposition home or self-care (01) ==
PROVIDERS: PCP Internal Medicine; Visit Provider Physician Assistant
DX: Z12.2 Encounter for screening for malignant neoplasm of respiratory organs (principal); Z87.891 Personal history of nicotine dependence
CPT/HCPCS: 71271

== ENCOUNTER 2022-02-25 11:18 | Outpatient (CLI) | payer MEDICARE, SELFPAY ==
[2022-02-25 11:57] LABS: Basophils Absolute Auto 0.1 K/mm3 (0.0-0.1); Basophils Percent Auto 1.1 % (0.2-1.2); Eosinophils Absolute Auto 0.5 K/mm3 (0-0.3); Eosinophils Percent Auto 6.8 % (0-4.4); Hematocrit 30.8 % (37.0-47.0); Hemoglobin 9.4 g/dL (12.0-15.0); Immature Granulocyte Absolute 0.02 K/mm3 (0.00-0.031); Immature Granulocyte Percent A 0.3 % (0-0.5); Lymphocytes Absolute Auto 1.55 K/mm3 (0.9-3.2); Lymphocytes Percent Auto 19.6 % (18.3-44.2); Mean Corpuscular HGB Conc 30.5 g/dl (32-36); Mean Corpuscular Hemoglobin 25.1 pg (26-34); Mean Corpuscular Volume 82.4 fl (80-100); Mean Platelet Volume 9.8 fl (7.4-10.4); Monocytes Percent Auto 12.5 % (2.6-8.5); Neutrophils Absolute Auto 4.7 K/mm3 (1.3-6.7); Neutrophils Percent Auto 59.7 % (45.5-73.1); Platelet Count Result 306 k/mm3 (150-375); Red Blood Count 3.74 M/mm3 (4.2-5.4); Red Cell Distribution Width 18.5 % (11.5-14.5); White Blood Count 7.9 K/mm3 (4.5-10.0)
[2022-02-25 12:04] LABS: Creatinine Urine 67.1 mg/dL
[2022-02-25 12:17] LABS: Total Protein Urine Random 401 mg/dL; Ur Ttl Prot Creatinine Ratio 5.98 mg/mg (0-0.20)
[2022-02-25 12:17] LABS: Albumin Level 3.6 g/dL (3.5-5.1); Anion Gap 9 mmol/L (8-16); Blood Urea Nitrogen 13 mg/dL (7-17); Calcium 8.5 mg/dL (8.4-10.2); Carbon Dioxide 26 mmol/L (22-30); Chloride 105 mmol/L (98-107); Estimated Glomerular Filt Rate > 60; Glucose 236 mg/dL (65-110); Phosphorus 3.7 mg/dL (2.5-4.5); Sodium 140 mmol/L (137-145)
[2022-02-25 12:18] LABS: Iron 13 ug/dL (37-170)
[2022-02-25 12:27] LABS: Percent Iron Saturation 3 % (20-50)
[2022-02-25 12:28] LABS: Parathyroid Intact 38.2 pg/mL (7.5-53.5)
[2022-02-25 19:38] LABS: Ferritin 6.77 ng/mL (11.1-264)
== END 2022-02-25 11:19 | disposition home or self-care (01) ==
LOC: ANHLAB 11:19
PROVIDERS: PCP Internal Medicine
DX: D50.0 Iron deficiency anemia secondary to blood loss (chronic) (principal); N18.9 Chronic kidney disease, unspecified
CPT/HCPCS: 36415; 80069; 82570; 82728; 83540; 83550; 83970; 84156; 85025

== ENCOUNTER 2022-04-05 14:44 | Outpatient (CLI) | payer MEDICARE, SELFPAY ==
--- NOTE | ~2022-04-05 | MR_ITS ---
EXAMINATION: MR lumbar spine wo con DATE: 04/05/2022 15:24 INDICATION: Spinal stenosis. TECHNIQUE: Magnetic resonance imaging (MRI) of the lumbar spine was performed without intravenous con trast. Sequences included sagittal T2-weighted FSE, sagittal T2-weighted FS FSE, sagittal T1-weighted FSE, and axial T2-weighted FSE. COMPARISON: Lumbar spine MRI 10/27/2020 FINDINGS: There is 3 degrees dextrocurvature of lumbar spine. There is 3 mm retrolisthesis of L1 on L 2, L2 on L3, and L3 on L4. Vertebral body heights are normal. There is moderately decreased disc heig ht at T11-T12 and L1-L2, severely decreased disc height at L2-L3 and L3-L4, moderately decreased disc height at L4-L5, and severely decreased disc height at L5-S1 with endplate remodeling. The distal sp inal cord signal intensity is normal. The conus medullaris is at L1-L2. The following disc levels are specifically discussed: L1-L2: The disc is bulging and has an annular fissure. There is mild bilateral facet joint osteoarthr itis. There is moderate right neural foraminal stenosis. There is mild central canal stenosis. L2-L3: The disc is bulging and has an annular fissure. There is moderate bilateral facet joint osteoa rthritis. There is moderate bilateral neural foraminal stenosis. There is mild central canal stenosis . L3-L4: The disc is bulging and has an annular fissure. There is severe bilateral facet joint osteoart hritis. There is hypertrophy of the ligamentum flavum. There is mild right and moderate left neural f oraminal stenosis. There is mild central canal stenosis. L4-L5: The disc is bulging and has an annular fissure. There is severe bilateral facet joint osteoart hritis. There is mild right and moderate left neural foraminal stenosis. There is mild central canal stenosis. L5-S1: The disc is bulging and has an annular fissure. There is severe bilateral facet joint osteoart hritis. There is moderate right and mild left neural foraminal stenosis. There is mild central canal stenosis. IMPRESSION: 1. Severe lumbar spondylosis, stable from 10/27/2020. Reviewed, dictated and finalized at location A. 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
== END 2022-04-05 14:45 | disposition home or self-care (01) ==
PROVIDERS: PCP Internal Medicine
DX: M48.062 Spinal stenosis, lumbar region with neurogenic claudication (principal); M47.896 Other spondylosis, lumbar region
CPT/HCPCS: 72148

== ENCOUNTER 2022-06-28 13:51 | Outpatient (CLI) | payer MEDICARE, SELFPAY ==
--- NOTE | ~2022-06-28 | MR_ITS ---
EXAMINATION: MR thoracic spine wo con DATE: 06/28/2022 14:38 INDICATION: Postlaminectomy syndrome. Back pain. TECHNIQUE: Magnetic resonance imaging (MRI) of the thoracic spine was performed without intravenous c ontrast. COMPARISON: Chest CT 11/10/2021 FINDINGS: There is 9 degrees dextrocurvature of thoracic spine. There is severe cervical spondylosis. Vertebral body heights are normal in the thoracic spine. There is moderately decreased disc height a t T10-T11 and T11-T12 and mildly decreased disc height at T12-L1. At T10-T11, the disc is bulging wit h mild central canal stenosis. At T11-T12, the disc is bulging with mild central canal stenosis. At T 12-L1, the disc is bulging with mild central canal stenosis. There is multilevel facet joint osteoart hritis, severe at many levels. There is multilevel mild neural foraminal stenosis bilaterally. On the right, there is moderate neural foraminal stenosis at C7-T1, T8-T9, T9-T10, and T10-T11. On the left , there is moderate neural foraminal stenosis at T7-T8 and T11-T12. The spinal cord signal intensity is normal. IMPRESSION: 1. Moderate thoracic spondylosis. Reviewed, dictated and finalized at location A.
== END 2022-06-28 13:52 | disposition home or self-care (01) ==
PROVIDERS: PCP Internal Medicine
DX: M96.1 Postlaminectomy syndrome, not elsewhere classified (principal); M47.894 Other spondylosis, thoracic region
CPT/HCPCS: 72146

== ENCOUNTER 2022-08-23 11:48 | Outpatient (CLI) | payer MEDICARE, SELFPAY ==
[2022-08-23 12:25] LABS: Basophils Absolute Auto 0.1 K/mm3 (0.0-0.1); Basophils Percent Auto 0.8 % (0.2-1.2); Eosinophils Absolute Auto 0.5 K/mm3 (0-0.3); Eosinophils Percent Auto 6.4 % (0-4.4); Hematocrit 33.2 % (37.0-47.0); Hemoglobin 10.3 g/dL (12.0-15.0); Immature Granulocyte Absolute 0.04 K/mm3 (0.00-0.031); Immature Granulocyte Percent A 0.5 % (0-0.5); Lymphocytes Absolute Auto 1.52 K/mm3 (0.9-3.2); Lymphocytes Percent Auto 20.3 % (18.3-44.2); Mean Corpuscular Hemoglobin 27.8 pg (26-34); Mean Corpuscular Volume 89.7 fl (80-100); Mean Platelet Volume 10.2 fl (7.4-10.4); Monocytes Absolute Auto 0.7 K/mm3 (0.1-0.6); Monocytes Percent Auto 8.8 % (2.6-8.5); Neutrophils Absolute Auto 4.7 K/mm3 (1.3-6.7); Neutrophils Percent Auto 63.2 % (45.5-73.1); Platelet Count Result 287 k/mm3 (150-375); Red Cell Distribution Width 16.8 % (11.5-14.5); White Blood Count 7.5 K/mm3 (4.5-10.0)
[2022-08-23 12:32] LABS: Appearance Urine Clear (Clear); Bacteria Urine None Seen /hpf; Bilirubin Urine Negative (Negative); Blood Urine Negative (Negative); Color Urine Yellow (Yellow); Glucose Urine UA Negative (Negative); Ketones Urine Negative (Negative); Leukocyte Esterase Ur Trace LEU/UL (Negative); Nitrate Urine Negative (Negative); Non Pathogenic Casts 0-2; Protein Urine 2+ mg/dL (Negative); RBC Urine 0-2 /hpf (0-2); Specific Grav Ur 1.014 (1.001-1.035); Squamous Epithelial Cell Urine Few /hpf (Few); Urobilinogen Urine 0.2 mg/dL (<2.0); WBC Urine 0-5 /hpf; pH Urine 5.5 (5.0-9.0)
--- NOTE | 2022-08-23 12:38 | ECG_ITS ---
Measurements Intervals [place] Rate: 69 P: 36 WI: 204 QRS: 0 QRSD: 93 T: 61 QT: 415 QTc: 445 Interpretive Statements SINUS RHYTHM NONSPECIFIC T-WAVE ABNORMALITY- ANT/HIGH LAT LEADS BORDERLINE ECG COMPARED TO ECG 11/23/2020 12:44:03 NO SIGNIFICANT CHANGES Electronically Signed On 08-23-2022 13:23:04 CDT by Isaiah Patel D.O.
[2022-08-23 12:41] LABS: Add Urine Microscopic? YES
[2022-08-23 12:42] LABS: Alanine Aminotransferase 13 U/L (6-35); Alkaline Phosphatase 68 U/L (38-126); Anion Gap 7 mmol/L (8-16); Aspartate Amino Transferase 25 U/L (14-36); Bilirubin,Total 0.6 mg/dL (0.2-1.3); Blood Urea Nitrogen 14 mg/dL (7-17); Calcium 8.8 mg/dL (8.4-10.2); Carbon Dioxide 25 mmol/L (22-30); Chloride 106 mmol/L (98-107); Estimated Glomerular Filt Rate > 60; Glucose 171 mg/dL (65-110); Potassium 4.1 mmol/L (3.4-5.0); Sodium 138 mmol/L (137-145)
== END 2022-08-23 11:49 | disposition home or self-care (01) ==
PROVIDERS: PCP Internal Medicine
DX: M96.1 Postlaminectomy syndrome, not elsewhere classified (principal)
CPT/HCPCS: 36415; 80053; 81001; 85025; 93005

== ENCOUNTER 2022-10-29 14:11 | Outpatient (CLI) | payer MEDICARE, SELFPAY ==
[2022-10-29 14:44] LABS: Basophils Absolute Auto 0.1 K/mm3 (0.0-0.1); Basophils Percent Auto 0.9 % (0.2-1.2); Eosinophils Absolute Auto 0.5 K/mm3 (0-0.3); Eosinophils Percent Auto 5.3 % (0-4.4); Hematocrit 35.9 % (37.0-47.0); Hemoglobin 11.3 g/dL (12.0-15.0); Immature Granulocyte Absolute 0.05 K/mm3 (0.00-0.031); Immature Granulocyte Percent A 0.5 % (0-0.5); Lymphocytes Absolute Auto 1.47 K/mm3 (0.9-3.2); Lymphocytes Percent Auto 15.7 % (18.3-44.2); Mean Corpuscular HGB Conc 31.5 g/dl (32-36); Mean Corpuscular Hemoglobin 28.7 pg (26-34); Mean Corpuscular Volume 91.1 fl (80-100); Mean Platelet Volume 10.5 fl (7.4-10.4); Monocytes Absolute Auto 0.9 K/mm3 (0.1-0.6); Monocytes Percent Auto 9.8 % (2.6-8.5); Neutrophils Absolute Auto 6.4 K/mm3 (1.3-6.7); Neutrophils Percent Auto 67.8 % (45.5-73.1); Platelet Count Result 330 k/mm3 (150-375); Red Blood Count 3.94 M/mm3 (4.2-5.4); Red Cell Distribution Width 15.6 % (11.5-14.5); White Blood Count 9.4 K/mm3 (4.5-10.0)
[2022-10-29 14:57] LABS: Alanine Aminotransferase 14 U/L (6-35); Alkaline Phosphatase 61 U/L (38-126); Anion Gap 5 mmol/L (8-16); Aspartate Amino Transferase 21 U/L (14-36); Bilirubin,Total 0.3 mg/dL (0.2-1.3); Blood Urea Nitrogen 8 mg/dL (7-17); Calcium 9.1 mg/dL (8.4-10.2); Carbon Dioxide 23 mmol/L (22-30); Chloride 108 mmol/L (98-107); Estimated Glomerular Filt Rate > 60; Glucose 94 mg/dL (65-110); Potassium 3.6 mmol/L (3.4-5.0); Sodium 136 mmol/L (137-145)
[2022-10-29 15:09] LABS: Appearance Urine Clear (Clear); Bacteria Urine None Seen /hpf; Bilirubin Urine Negative (Negative); Blood Urine Negative (Negative); Color Urine Yellow (Yellow); Glucose Urine UA Negative (Negative); Ketones Urine Negative (Negative); Leukocyte Esterase Ur 1+ LEU/UL (Negative); Need Manual Microscopic Reviewed; Nitrate Urine Negative (Negative); Non Pathogenic Casts 0-2; Protein Urine 3+ mg/dL (Negative); RBC Urine 0-2 /hpf (0-2); Specific Grav Ur 1.013 (1.001-1.035); Squamous Epithelial Cell Urine Moderate /hpf (Few); WBC Urine 0-5 /hpf
[2022-10-29 15:12] LABS: Add Urine Microscopic? YES
== END 2022-10-29 14:12 | disposition home or self-care (01) ==
PROVIDERS: PCP Internal Medicine
DX: M96.1 Postlaminectomy syndrome, not elsewhere classified (principal)
CPT/HCPCS: 36415; 80053; 81001; 85025

== ENCOUNTER 2022-11-13 02:42 | Emergency (ER) | payer MEDICARE, SELFPAY ==
[2022-11-13 02:43] VITALS: BP 144/54; PULSE 64; RESP 16; TEMP 36.6; O2SAT 94
[2022-11-13 02:52] LABS: Glucose Point of Care 331 mg/dl (65-105)
[2022-11-13 03:37] LABS: Basophils Absolute Auto 0.1 K/mm3 (0.0-0.1); Basophils Percent Auto 0.6 % (0.2-1.2); Eosinophils Absolute Auto 0.1 K/mm3 (0-0.3); Eosinophils Percent Auto 0.6 % (0-4.4); Hemoglobin 10.6 g/dL (12.0-15.0); Immature Granulocyte Absolute 0.05 K/mm3 (0.00-0.031); Immature Granulocyte Percent A 0.4 % (0-0.5); Lymphocytes Absolute Auto 0.95 K/mm3 (0.9-3.2); Lymphocytes Percent Auto 7.7 % (18.3-44.2); Mean Corpuscular HGB Conc 36.6 g/dl (32-36); Mean Corpuscular Hemoglobin 36.3 pg (26-34); Mean Corpuscular Volume 99.3 fl (80-100); Mean Platelet Volume 10.6 fl (7.4-10.4); Monocytes Absolute Auto 0.7 K/mm3 (0.1-0.6); Monocytes Percent Auto 5.7 % (2.6-8.5); Neutrophils Absolute Auto 10.5 K/mm3 (1.3-6.7); Platelet Count Result 277 k/mm3 (150-375); Red Blood Count 2.92 M/mm3 (4.2-5.4); Red Cell Distribution Width 20.1 % (11.5-14.5); White Blood Count 12.4 K/mm3 (4.5-10.0)
[2022-11-13 03:43] LABS: Glucose Point of Care 190 mg/dl (65-105)
[2022-11-13 03:48] LABS: Anion Gap 7 mmol/L (8-16); Blood Urea Nitrogen 13 mg/dL (7-17); Calcium 8.5 mg/dL (8.4-10.2); Carbon Dioxide 22 mmol/L (22-30); Chloride 103 mmol/L (98-107); Estimated CRCL calculation 69 ml/min; Estimated Glomerular Filt Rate > 60; Glucose 190 mg/dL (65-110); Sodium 132 mmol/L (137-145)
[2022-11-13 04:54] LABS: Glucose Point of Care 281 mg/dl (65-105)
[2022-11-13 04:58] LABS: Appearance Urine Clear (Clear); Bacteria Urine None Seen /hpf; Bilirubin Urine Negative (Negative); Blood Urine Negative (Negative); Color Urine Yellow (Yellow); Glucose Urine UA Trace mg/dL (Negative); Ketones Urine Negative (Negative); Leukocyte Esterase Ur Negative LEU/UL (Negative); Nitrate Urine Negative (Negative); Protein Urine 3+ mg/dL (Negative); RBC Urine 0-2 /hpf (0-2); Specific Grav Ur 1.017 (1.001-1.035); Squamous Epithelial Cell Urine Few /hpf (Few); Urobilinogen Urine 0.2 mg/dL (<2.0); WBC Urine 0-5 /hpf; pH Urine 5.5 (5.0-9.0)
[2022-11-13 05:06] LABS: Add Urine Microscopic? YES
[2022-11-13] MEDS: POTASSIUM CHLORIDE 20 MEQ ER TABLET 40 MEQ PO (05:30)
[2022-11-13 05:32] VITALS: BP 114/58; PULSE 78; RESP 15; O2SAT 100
--- NOTE | 2022-11-13 05:32 | ED.GENADULT ---
HPI - General Adult General Chief complaint: Recheck/Abnormal Lab/Rx Stated complaint: AMS Time Seen by Provider: 11/13/22 02:58 History of Present Illness HPI narrative: this is a 77-year-old female with nsulin dependent diabetes presenting for altered mental status. Patient had a pain stimulator put in her back earlier today. after she got home she was doing well but she saw that her blood sugar was getting low and she went to eat dinner. She gave her insulin injected and microwave some macro knee and she is. She then sat down next to her on the sofa. He noticed that she had not eaten her mac and cheese and it has built to the ground she was unresponsive. EMS was called and she was found have a blood glucose of 29. She is given dextrose with return of mental status. At this time she has no complaints. Related Data Home Medications Medication Instructions Recorded Confirmed aspirin 81 mg tablet,delayed 81 mg PO DAILY 03/04/19 10/29/22 release (Adult Low Dose Aspirin) ezetimibe 10 mg tablet (Zetia) 10 mg PO DAILY 03/04/19 10/29/22 fenofibrate nanocrystallized 145 145 mg PO DAILY 03/04/19 10/29/22 mg tablet (Tricor) insulin lispro 100 unit/mL 1 unit subcut ONCE 03/04/19 10/29/22 subcutaneous pen (Humalog KwikPen (U-100) Insulin) mecobalamin (vitamin B12) 1,000 1,000 mcg sublingual DAILY 03/04/19 10/29/22 mcg disintegrating tablet,sublingual rosuvastatin 40 mg tablet (Crestor) 40 mg PO DAILY 03/04/19 10/29/22 nitroglycerin 0.4 mg sublingual 0.4 mg sublingual Q5M PRN 02/02/20 10/29/22 tablet (Nitrostat) ergocalciferol (vitamin D2) 1,250 1,250 mcg PO WEEKLY 02/23/20 10/29/22 mcg (50,000 unit) capsule insulin glargine 100 unit/mL (3 66 unit subcut DAILY 04/30/21 10/29/22 mL) subcutaneous pen (Lantus Solostar U-100 Insulin) metformin 1,000 mg tablet 500 mg PO BID 04/30/21 10/29/22 blood-glucose meter,continuous 04/29/22 10/29/22 (Dexcom G6 Gleason Gear Generator) blood-glucose sensor (Dexcom G6 04/29/22 10/29/22 Sensor device) carbidopa 25 mg-levodopa 100 mg 1 tablet PO TID 04/29/22 10/29/22 tablet carvedilol 12.5 mg tablet 12.5 mg PO Q12H 04/29/22 10/29/22 glucagon 1 mg solution for 1 mg subcut Q20M PRN 04/29/22 10/29/22 injection (Glucagon Emergency Kit) lisinopril 40 mg tablet 20 mg PO DAILY 10/29/22 10/29/22 tirzepatide 10 mg/0.5 mL 10 mg subcut WEEKLY 10/29/22 10/29/22 subcutaneous pen injector (Vilma) Allergies Allergy/AdvReac Type Severity Reaction Status Date / Time Sulfa (Sulfonamide Allergy Severe Swelling Verified 11/13/22 02:53 Antibiotics) of Lip/Tongue/Throat Penicillins Allergy Unknown Swelling Verified 11/13/22 02:53 of Lip/Tongue/Throat PMFSH Past Medical History Medical History Asthma BMI 37.0-37.9, adult COPD (chronic obstructive pulmonary disease) Degenerative arthritis of knee, bilateral Heart disease 2 heart attacks 2009, 2 stents placed Hemoglobin A1C between 7% and 9% indicating borderline diabetic control 01/28/20 A1C was 7.7 History of bruising easily History of stress test Hyperlipidemia Kidney disease Kidney disease Osteoporosis Surgical History Surgical History Gallbladder calculus H/O bilateral breast reduction surgery History of appendectomy History of cataract surgery History of cholecystectomy History of hysterectomy Hx of breast reduction, elective Hx of tonsillectomy Family History Family History Father Family history of heart disease in male family member before age 55 Patient's father is Diabetes mellitus Hypertension Family history of coronary artery disease Mother Patient's mother is Sibling Family history of elevated blood lipids Family history of cardiovascular disease Family history of lupus
[2022-11-13 06:00] VITALS: BP 118/52; PULSE 76; RESP 15; O2SAT 100
== END 2022-11-13 06:01 | disposition home or self-care (01) ==
PROVIDERS: Emergency Provider Emergency Medicine; PCP Internal Medicine
DX: E11.649 Type 2 diabetes mellitus with hypoglycemia without coma (principal); J44.9 Chronic obstructive pulmonary disease, unspecified; I25.2 Old myocardial infarction; N28.9 Disorder of kidney and ureter, unspecified; E78.5 Hyperlipidemia, unspecified; M17.0 Bilateral primary osteoarthritis of knee; M81.0 Age-related osteoporosis without current pathological fracture; F17.210 Nicotine dependence, cigarettes, uncomplicated; Z98.49 Cataract extraction status, unspecified eye; Z90.49 Acquired absence of other specified parts of digestive tract; Z79.4 Long term (current) use of insulin; Z79.85 Long-term (current) use of injectable non-insulin antidiabetic drugs; Z79.82 Long term (current) use of aspirin
CPT/HCPCS: 36415; 80048; 81001; 82948; 85025; 99283; A9270

== ENCOUNTER 2022-11-23 14:28 | Emergency (ER) | payer MEDICARE, SELFPAY ==
[2022-11-23] VITALS (14 sets, daily range): BP systolic 110–131; BP diastolic 52–104; PULSE 70–92; RESP 12–29; TEMP 36.3–36.7; O2SAT 97–100
--- NOTE | ~2022-11-23 | CT_ITS ---
EXAMINATION: CT brain wo con DATE: 11/23/2022 15:01 INDICATION: Altered mental state TECHNIQUE: Computed tomography (CT) of the head was performed without intravenous contrast. The mA wa s adjusted according to patient size. Iterative reconstruction technique was employed. Exam dose: 52 9.67 mGy-cm total exam DLP. COMPARISON: None FINDINGS: Bilateral carotid siphon internal carotid artery calcifications, left vertebral artery and basilar artery calcification. No intracranial mass lesion or hemorrhage or cerebrovascular accident is detected. No midline shift o r mass effect. No subdural or epidural hematoma. No fracture or bone destruction of the cranial vault. The mastoid air cells and included paranasal sinuses are normally developed and aerated. IMPRESSION: Cerebral atherosclerosis No acute intracranial finding Reviewed, dictated and finalized at [facility] Reviewed, dictated and finalized at [facility].
--- NOTE | 2022-11-23 14:34 | ECG_ITS ---
Measurements Intervals [place] Rate: 71 P: 30 WI: 196 QRS: -4 QRSD: 97 T: 60 QT: 412 QTc: 448 Interpretive Statements SINUS RHYTHM POSSIBLE ANTERIOR MYOCARDIAL INFARCTION , PROBABLY OLD [30 ms Q WAVE IN V3/V4, OR R < 0.2 mV IN V4] COMPARED TO ECG 08/23/2022 12:47:11 NO SIGNIFICANT CHANGES Electronically Signed On 11-24-2022 11:11:51 CDT by Chandrakant Díaz MD
--- NOTE | 2022-11-23 14:36 | ED.AMS ---
HPI - Altered Mental Status General Chief Complaint: Altered Mental Status Stated Complaint: low bs Time Seen by Provider: 11/23/22 14:33 History of Present Illness HPI narrative: Patient is a 77-year-old female with history of CAD, diabetes, lower back pain here with altered mental status. Patient went to [facility] for an MRI today. Before her MRI was scheduled she took 1 2 mg tablet of lorazepam. She was then advised to take another dose when she arrived she was still feeling anxious. Upon arrival to [place] and notified her that she has a nerve stimulator in her lower back so she is unable to perform the MRI at this time. Patient was doing okay and on the way home in the car she became more and more drowsy in the was unable to arouse her. He knows that she takes 30 units of long-acting insulin in the morning which she took this morning. She had a small breakfast and then was advised to be NPO at 9:30 AM. notes that he was unable to arouse her so he is worried that she may be hypoglycemic. He then drove to the hospital for her to be evaluated. Patient does awake and answer questions appropriately, oriented to self and situation. She denies headache, chest pain, shortness of breath, falls. Related Data Home Medications Medication Instructions Recorded Confirmed aspirin 81 mg tablet,delayed 81 mg PO DAILY 03/04/19 10/29/22 release (Adult Low Dose Aspirin) ezetimibe 10 mg tablet (Zetia) 10 mg PO DAILY 03/04/19 10/29/22 fenofibrate nanocrystallized 145 145 mg PO DAILY 03/04/19 10/29/22 mg tablet (Tricor) insulin lispro 100 unit/mL 1 unit subcut ONCE 03/04/19 10/29/22 subcutaneous pen (Humalog KwikPen (U-100) Insulin) mecobalamin (vitamin B12) 1,000 1,000 mcg sublingual DAILY 03/04/19 10/29/22 mcg disintegrating tablet,sublingual rosuvastatin 40 mg tablet (Crestor) 40 mg PO DAILY 03/04/19 10/29/22 nitroglycerin 0.4 mg sublingual 0.4 mg sublingual Q5M PRN 02/02/20 10/29/22 tablet (Nitrostat) ergocalciferol (vitamin D2) 1,250 1,250 mcg PO WEEKLY 02/23/20 10/29/22 mcg (50,000 unit) capsule insulin glargine 100 unit/mL (3 66 unit subcut DAILY 04/30/21 10/29/22 mL) subcutaneous pen (Lantus Solostar U-100 Insulin) metformin 1,000 mg tablet 500 mg PO BID 04/30/21 10/29/22 blood-glucose meter,continuous 04/29/22 10/29/22 (Dexcom G6 Speeder Operator) blood-glucose sensor (Dexcom G6 04/29/22 10/29/22 Sensor device) carbidopa 25 mg-levodopa 100 mg 1 tablet PO TID 04/29/22 10/29/22 tablet carvedilol 12.5 mg tablet 12.5 mg PO Q12H 04/29/22 10/29/22 glucagon 1 mg solution for 1 mg subcut Q20M PRN 04/29/22 10/29/22 injection (Glucagon Emergency Kit) lisinopril 40 mg tablet 20 mg PO DAILY 10/29/22 10/29/22 tirzepatide 10 mg/0.5 mL 10 mg subcut WEEKLY 10/29/22 10/29/22 subcutaneous pen injector (Mounjaro) Allergies Allergy/AdvReac Type Severity Reaction Status Date / Time Sulfa (Sulfonamide Allergy Severe Swelling Verified 11/23/22 14:44 Antibiotics) of Lip/Tongue/Throat Penicillins Allergy Unknown Swelling Verified 11/23/22 14:44 of Lip/Tongue/Throat Review of Systems Review of Systems: All systems reviewed & are unremarkable except as noted in HPI and below PMFSH Past Medical History Medical History Asthma BMI 37.0-37.9, adult COPD (chronic obstructive pulmonary disease) Degenerative arthritis of knee, bilateral Heart disease 2 heart attacks 2009, 2 stents placed Hemoglobin A1C between 7% and 9% indicating borderline diabetic control 01/28/20 A1C was 7.7 History of bruising easily History of stress test Hyperlipidemia Kidney disease Kidney disease Osteoporosis Surgical History Surgical History Gallbladder calculus H/O bilateral breast reduction surgery History of appendectomy History of cataract surgery History of damaris
[2022-11-23 14:47] LABS: Basophils Absolute Auto 0.1 K/mm3 (0.0-0.1); Eosinophils Absolute Auto 0.5 K/mm3 (0-0.3); Eosinophils Percent Auto 7.2 % (0-4.4); Hematocrit 32.3 % (37.0-47.0); Hemoglobin 10.3 g/dL (12.0-15.0); Immature Granulocyte Absolute 0.05 K/mm3 (0.00-0.031); Immature Granulocyte Percent A 0.7 % (0-0.5); Lymphocytes Absolute Auto 1.41 K/mm3 (0.9-3.2); Lymphocytes Percent Auto 19.6 % (18.3-44.2); Mean Corpuscular HGB Conc 31.9 g/dl (32-36); Mean Corpuscular Hemoglobin 29.8 pg (26-34); Mean Corpuscular Volume 93.4 fl (80-100); Mean Platelet Volume 10.1 fl (7.4-10.4); Monocytes Absolute Auto 0.8 K/mm3 (0.1-0.6); Monocytes Percent Auto 11.1 % (2.6-8.5); Neutrophils Absolute Auto 4.3 K/mm3 (1.3-6.7); Neutrophils Percent Auto 60.4 % (45.5-73.1); Platelet Count Result 325 k/mm3 (150-375); Red Blood Count 3.46 M/mm3 (4.2-5.4); Red Cell Distribution Width 15.6 % (11.5-14.5); White Blood Count 7.2 K/mm3 (4.5-10.0)
[2022-11-23 14:58] LABS: Ethanol < 10 mg/dL (<10)
[2022-11-23 14:59] LABS: Alanine Aminotransferase 13 U/L (6-35); Albumin Level 3.9 g/dL (3.5-5.1); Alkaline Phosphatase 68 U/L (38-126); Anion Gap 7 mmol/L (8-16); Aspartate Amino Transferase 24 U/L (14-36); Bilirubin,Total 0.3 mg/dL (0.2-1.3); Blood Urea Nitrogen 16 mg/dL (7-17); Calcium 8.9 mg/dL (8.4-10.2); Carbon Dioxide 25 mmol/L (22-30); Chloride 105 mmol/L (98-107); Estimated CRCL calculation 84 ml/min; Estimated Glomerular Filt Rate > 60; Glucose 166 mg/dL (65-110); Magnesium 1.8 mg/dL (1.6-2.3); Potassium 4.1 mmol/L (3.4-5.0); Sodium 137 mmol/L (137-145)
[2022-11-23 15:10] LABS: Troponin I < 0.012 ng/mL (0.000-0.034)
[2022-11-23 15:10] LABS: Appearance Urine Clear (Clear); Bacteria Urine None Seen /hpf; Bilirubin Urine Negative (Negative); Blood Urine Negative (Negative); Color Urine Yellow (Yellow); Glucose Urine UA Negative (Negative); Ketones Urine Negative (Negative); Leukocyte Esterase Ur Negative LEU/UL (Negative); Need Manual Microscopic Reviewed; Nitrate Urine Negative (Negative); Non Pathogenic Casts 0-2; Protein Urine 2+ mg/dL (Negative); RBC Urine 0-2 /hpf (0-2); Specific Grav Ur 1.019 (1.001-1.035); Squamous Epithelial Cell Urine None seen /hpf (Few); WBC Urine 0-5 /hpf
[2022-11-23 15:15] LABS: Add Urine Microscopic? YES
[2022-11-23] MEDS: SODIUM CHLORIDE 0.9% IV 1,000 ML 999 ML IV CONT (15:20)
[2022-11-25 15:13] LABS: Glucose Point of Care 176 mg/dl (65-105)
== END 2022-11-23 17:25 | disposition home or self-care (01) ==
PROVIDERS: Emergency Provider Student in an Organized Health Care Education/Training Program; PCP Internal Medicine
DX: T50.905A Adverse effect of unspecified drugs, medicaments and biological substances, initial encounter (principal); I25.10 Atherosclerotic heart disease of native coronary artery without angina pectoris; J44.9 Chronic obstructive pulmonary disease, unspecified; E78.5 Hyperlipidemia, unspecified; I25.2 Old myocardial infarction; F17.210 Nicotine dependence, cigarettes, uncomplicated; Z79.4 Long term (current) use of insulin; Z79.899 Other long term (current) drug therapy
CPT/HCPCS: 36415; 70450; 80053; 80307; 81001; 82948; 83735; 84484; 85025; 93005; 96360; 99284; J7030

== ENCOUNTER 2023-07-01 14:02 | Outpatient (CLI) | payer MEDICARE, SELFPAY ==
--- NOTE | ~2023-07-01 | CT_ITS ---
EXAMINATION:CT lung screening DATE: 07/01/2023 14:27 INDICATION: Nicotine dependence. Current smoker with 45 pack year history. TECHNIQUE: Computed tomography (CT) of the chest was performed without intravenous contrast. Automate d exposure control and iterative reconstruction technique were employed. The dose-length product (DLP ) was 97.90 mGy-cm. COMPARISON: None currently available. FINDINGS: There is mild emphysema. There is a 6 mm nodule in right upper lobe. There are a few other scattered nodules in the lungs measuring up to 4 mm. There is mild atelectasis bilaterally. No pleura l effusion. There is left atrial enlargement of the heart. There are coronary artery calcifications. No pericardial effusion. There is a 13 mm cyst in right kidney. There are cysts in the kidneys measur ing up to 16 mm in the left. Epidural electrodes are noted. There is severe cervical spondylosis and moderate thoracic spondylosis. IMPRESSION: 1. Lung-RADS category 3: Probably benign. Further evaluation is recommended with noncontrast low-dose chest CT in 6 months. Reviewed, dictated and finalized at [facility]. IMPRESSION: 1. Lung-RADS category 3: Probably benign. Further evaluation is recommended wit h noncontrast low-dose chest CT in 6 months.
== END 2023-07-01 14:03 | disposition home or self-care (01) ==
PROVIDERS: PCP Internal Medicine; Visit Provider Physician Assistant
DX: Z12.2 Encounter for screening for malignant neoplasm of respiratory organs (principal); Z87.891 Personal history of nicotine dependence
CPT/HCPCS: 71271